=== PATIENT | female | born 1965 | race Caucasian/White ===

== ENCOUNTER 2017-12-13 09:34 | Emergency (ER) | payer BC ==
--- NOTE | 2017-12-13 10:00 | CPEKG ---
Heart Rate: 88 RR Interval: 682 P-R Interval: 152 QRSD Interval: 84 QT Interval: 356 QTC Interval: 431 P [place]: 33 QRS [place]: 35 T Wave [place]: 17 EKG Severity - NORMAL ECG - EKG Impression: SINUS RHYTHM Electronically Signed By: Maite Gage 13-Dec-2017 14:35:19
[2017-12-13] MEDS ORDERED: LET GEL TOPICAL 1 EA SYR TP ONE (11:22)
[2017-12-13] MEDS ORDERED: LIDOCAINE 4%/MENTHOL 1% PATCH TD ONE ×2 (11:24→11:26)
--- NOTE | 2017-12-13 11:25 | EDPHY ---
H & P Stated Complaint: Pain between shoulder blades x 3 days, woke up with tingling to L finger Time Seen by Provider: 12/13/17 11:22 HPI/ROS: HPI: This is a 52-year-old female who presents with Chief Complaint: Pain between shoulder blades x 3 days, woke up with tingling to L finger Location: Between shoulder blades Quality: Pain Duration: 3 days Signs and Symptoms: no shortness of breath at rest, no shortness of breath on exertion, no cough, no chest pain, no palpitations, no lower extremity edema, no wheezing, no orthopnea, no paroxysmal nocturnal dyspnea, no fever, no injury/ trauma, no hemoptysis, no carpal pedal spasms Timing: Waxes and wane Severity: [id number] Context: Patient is right-hand dominant, here visiting [facility] where she was originally born from [facility] as her father is in the hospital. She reports for the last 3 days she has feel this dull, aching muscular type pain between both of her shoulder blades. But now today finally it was more towards the left side and she believes that she may have just slept wrong or pulled a muscle. 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 She has a history of GERD but takes Nexium daily. She denies any indigestion/chest pain/shortness of breath. She reports that certain positions and moving her left arm in certain ways increase the pain. She also reports that if you touch the area it is very sensitive almost like it is a spasm. There is no family history of any cardiac disease. Modifying Factors: She has tried [id number] pain medication without relief Comment: ROS: see HPI Constitutional: No fever, no chills, no weight loss Eyes: No blurred vision Respiratory: No shortness of breath, no cough Cardiovascular: No chest pain, no palpitations, no lower extremity edema Gastrointestinal: No nausea, no vomiting, no diarrhea Genitourinary: No dysuria Extremities: No myalgias Neurologic: No weakness, no numbness Skin: No rashes Hematologic: No bruising, no bleeding MEDICAL/SURGICAL/SOCIAL HISTORY: Medical history: GERD takes Nexium regularly Surgical history: Denies Social history: Employed. Born in [facility] but now lives in [facility]. CONSTITUTIONAL: Extremely pleasant polite and cooperative adult white female, awake and alert, no obvious distress HEENT: Atraumatic and normocephalic. NECK: supple, no midline tenderness, flexion 45 degrees, extension 45 degrees, right and left lateral flexion 45 degrees. No meningismus. Cardiovascular: Normal S1/S2, regular rate, regular rhythm, without murmur rub or gallop. PULMONARY/CHEST: Symmetrical and nontender. no crepitus. Clear to auscultation bilaterally. Good air movement. No accessory muscle usage. ABDOMEN: Soft, nondistended, nontender, no ecchymosis. PELVIC: no pain with rocking; bilateral hips flexion 125 degrees, extension 30 degrees, with no pain internal rotation and no pain external rotation. BACK: No midline tenderness, midthoracic left side reproducible paraspinous muscle tenderness and spasm medial to the scapula edge; deep tendon reflexes 2/2 , no pain with straight leg raise, No foot drop. Achilles reflexes are equal bilaterally. Able to walk on heels and toes without difficulty. EXTREMITIES: 2/2 pulses, strength 5/5, left SHOULDER: Arc test abduction to 180, abduction to 45, horizontal flexion 130, horizontal extension to 45, deltoid strength 5/5. No pain with Neer test/Gayle test (impingement). No Tenderness to palpation over AC joint. DIP/PIP/MCP flexion/extension intact with good light touch sensation. no deformities, no clubbing, no cyanosis or edema. NEUROLOGICAL: no focal neuro deficits. GCS 15. Light touch sensation intact. SKIN: Warm and dry, no erythema. no rash. Good capillary refill. Source: Patient Exam Limitations: No limitations - Personal History LMP (Females 10-55): Post Menopausal Current Tetanus/Diphtheria Vaccine: No Current Tetanus Diphtheria and Acellular Pertussis (TDAP): No - Medical/Surgical History Hx Asthma: No Hx Chronic Respiratory Disease: No Hx Diabetes: No Hx Cardiac Disease: No Hx Renal Disease: No Hx Cirrhosis: No Hx Alcoholism: No Hx HIV/AIDS: No Hx Splenectomy or Spleen Trauma: No Other PMH: denies - Social History Smoking Status: Never smoked Constitutional: Initial Vital Signs Temperature (C) 36.5 C 12/13/17 09:38 Heart Rate 97 12/13/17 09:38 Respiratory Rate 16 12/13/17 09:38 Blood Pressure 147/90 H 12/13/17 09:38 O2 Sat (%) 99 05/08/18 09:38 O2 Delivery Mode Room Air Allergies/Adverse Reactions: erythromycin base Allergy (Verified 12/13/17 09:36) Home Medications: Medication Instructions Recorded Cyclobenzaprine [Flexeril 10 MG 10 mg PO Q8 PRN #10 tab 12/13/17 (*)] Lidocaine [Lidoderm] 1 each TP Q12 #6 adh..patch 12/13/17 Nexium 12/13/17 Medical Decision Making - Diagnostics EKG Interpretation: 12 lead EKG: Indication: Back pain Rhythm: Normal sinus rhythm, rate 88 beats per minute Kouts: Normal Intervals: Normal QRS: Normal ST segments: Normal T-waves: Normal INTERPRETATION: No acute ischemic changes The 12 lead EKG was interpreted by myself and with attending. ED Course/Re-evaluation: EKG, chest x-ray, labs, topical medication applied EKG shows no signs of cardiac ischemia or arrhythmia JAROCHO risk score is very low for ACS Wells criteria is low for VTE Lidoderm patch applied as suspect musculoskeletal in nature. No signs of neurovascular compromise/tenting of skin/compartment syndrome/ extremities and joints examined above and below area of concern and are neurovascularly intact. 1220: Labs reviewed. No signs of leukocytosis/anemia/WILLY/elevated LFTs/ electrolyte imbalance/coagulopathy/ACS/VTE/pancreatitis. Chest x-ray my read shows no signs of opacity, no effusion, no pneumothorax, no widened mediastinum Reassessed patient who reports relief of pain. Advised supportive care. This patient was seen under the supervision of my secondary supervising physician. I evaluated care for this patient independently. Differential Diagnosis: Back pain including but not limited to muscular pain, herniated disc, spine fracture, intra-abdominal causes and urinary tract infection. - Data Points Laboratory Results: Laboratory Results 12/13/17 11:36 12/13/17 11:36 12/13/17 12/13/17 11:36 11:36 WBC 5.30 10^3/uL 10^3/uL (3.80-9.50) RBC 4.19 10^6/uL 10^6/uL (4.18-5.33) Hgb 14.1 g/dL g/dL (12.6-16.3) Hct 39.6 % % (38.0-47.0) MCV 94.5 fL fL (81.5-99.8) MCH 33.7 pg pg (27.9-34.1) MCHC 35.6 g/dL g/dL (32.4-36.7) RDW 13.0 % % (11.5-15.2) Plt Count 199 10^3/uL 10^3/uL (150-400) MPV 11.1 fL fL (8.7-11.7) Neut % (Auto) 66.1 % % (39.3-74.2) Lymph % (Auto) 26.2 % % (15.0-45.0) [place] % (Auto) 5.8 % % (4.5-13.0) Eos % (Auto) 1.3 % % (0.6-7.6) Baso % (Auto) 0.4 % % (0.3-1.7) Nucleat RBC Rel Count 0.0 % % (0.0-0.2) Absolute Neuts (auto) 3.50 10^3/uL 10^3/uL (1.70-6.50) Absolute Lymphs (auto) 1.39 10^3/uL 10^3/uL (1.00-3.00) Absolute Monos (auto) 0.31 10^3/uL 10^3/uL (0.30-0.80) Absolute Eos (auto) 0.07 10^3/uL 10^3/uL (0.03-0.40) Absolute Basos (auto) 0.02 10^3/uL 10^3/uL (0.02-0.10) Absolute Nucleated RBC 0.00 10^3/uL 10^3/uL (0-0.01) Immature Gran % 0.2 % % (0.0-1.1) Immature Gran # 0.01 10^3/uL 10^3/uL (0.00-0.10) Sodium 143 mEq/L mEq/L (135-145) Potassium 4.3 mEq/L mEq/L (3.5-5.2) Chloride 106 mEq/L mEq/L (97-110) Carbon Dioxide 26 mEq/l mEq/l (22-31) Anion Gap 11 mEq/L mEq/L (8-16) BUN 8 mg/dL mg/dL (7-23) Creatinine 0.7 mg/dL mg/dL (0.6-1.0) Estimated GFR > 60 Glucose 108 mg/dL H mg/dL (70-100) Calcium 9.0 mg/dL mg/dL (8.5-10.4) Total Bilirubin 0.8 mg/dL mg/dL (0.1-1.4) Conjugated Bilirubin 0.5 mg/dL mg/dL (0.0-0.5) Unconjugated Bilirubin 0.3 mg/dL mg/dL (0.0-1.1) AST 40 IU/L IU/L (14-46) ALT 69 IU/L H IU/L (9-52) Alkaline Phosphatase 78 IU/L IU/L (38-126) Troponin I < 0.012 ng/mL ng/mL (0.000-0.034) NT-Pro-B Natriuret Pep 39 pg/mL pg/mL (0-125) Total Protein 6.7 g/dL g/dL (6.3-8.2) Albumin 4.0 g/dL g/dL (3.5-5.0) Lipase 151 IU/L IU/L (23-300) Medications Given: Discontinued Medications Miscellaneous Medication (Icy Hot Lidocaine/Menthol 4%/1% Patch) 1 patch TD EDNOW ONE Stop: 12/13/17 11:27 Last Admin: 12/13/17 11:29 Dose: 1 patch Tetracaine/Epinephrine/Lidocaine (Let Gel Topical) 1 ea TP EDNOW ONE Stop: 12/13/17 11:23 Last Admin: 12/13/17 11:27 Dose: Not Given Departure - Departure Disposition: Home, Routine, Self-Care Clinical Impression: Strain of muscle and tendon of back wall of thorax, initial encounter Condition: Good Instructions: Thoracic Back Strain (ED) Additional Instructions: Laboratory workup today was grossly unremarkable including no signs of cardiac ischemia. Take Tylenol 650 mg every 4 hours and/or Ibuprofen 600 mg every 8 hours with food as needed for pain. Use Flexeril every 8 hours as needed for muscle spasm. Apply Lidoderm patch every 12 hr as needed for pain. Perform gentle stretching exercises, get a massage, apply warm compresses to the area several times per day. Return to the ER immediately if you have new or worsening back pain, fevers/ chills, flu like symptoms, incontinence or inability to urinate or defecate, weakness, paralysis, or any other symptom that concerns you Referrals: PCP Not In,Dictionary [Medical Doctor] - As per Instructions Prescriptions: Cyclobenzaprine [Flexeril 10 MG (*)] 10 mg PO Q8 PRN #10 tab PRN Reason: Spasms Lidocaine [Lidoderm] 1 each TP Q12 #6 adh..patch
[2017-12-13 11:46] LABS: PLATELET COUNT 199 10^3/uL (150-400)
[2017-12-13 12:38] VITALS: BP 136/77
[2017-12-13] MEDS ORDERED: PATCH REMOVAL 1 EA PATCH TD SCH (21:00)
== END 2017-12-13 12:37 | disposition home or self-care (01) ==
DX: S29.012A Strain of muscle and tendon of back wall of thorax, initial encounter (principal); X50.9XXA Other and unspecified overexertion or strenuous movements or postures, initial encounter; Y99.0 Civilian activity done for income or pay; Y93.89 Activity, other specified